=== PATIENT | female | born 1970 | race Caucasian/White ===

== ENCOUNTER 2019-08-26 21:01 | Emergency (ER) | payer OTHER ==
[~2019-08-26] VITALS: Ht 162.6 cm; Wt 117.9 kg
[2019-08-26 21:02] VITALS: BP_SYST 142
--- NOTE | 2019-08-26 21:02 | NUR ---
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 Denies C/P or SOB. Denies cardiac hx. SVT 160-190's per bedside monitor. Dr. Raygoza called to bedside.
--- NOTE | 2019-08-26 21:10 | NUR ---
Dr. Raygoza at bedside.
--- NOTE | 2019-08-26 21:20 | NUR ---
# 20 gauge angiocath placed to LAC. Use of asceptic technique. Opsite placed over site. Blood return noted. Blood for lab drawn from site. Flushed with 10 cc of normal saline. No evidence of infiltration noted. Patient tolerated well.
--- NOTE | 2019-08-26 21:24 | NUR ---
Dr. Raygoza, myself, EMT at bedside. Crashcart at bedside and pads in place. HR 192. Pt given Adenosine 6 mg rapid IVP and flushed with 10 mL NS.
--- NOTE | 2019-08-26 21:25 | NUR ---
Stable HR 92 with NSR. Pt denies c/o C/P or SOB. Pt verbalizes improvement in symptoms and no longer feels palpitations.
[2019-08-26] MEDS ORDERED: ADENOSINE 6MG/2ML VIAL IVP ONE (21:30)
--- NOTE | 2019-08-26 21:30 | NUR ---
HR 84, NSR, B/P 152/86, R 20, SPO2 99%. Pt denies c/o C/P or SOB.
--- NOTE | 2019-08-26 21:32 | NUR ---
X-ray at bedside.
[2019-08-26 21:55] LABS: BASOPHILS # (AUTO) 0.1 K/uL (0.0-0.2); BASOPHILS % (AUTO) 0.6 % (0.0-2.0); EOSINOPHILS # (AUTO) 0.3 K/uL (0.0-0.4); EOSINOPHILS % (AUTO) 2.1 % (0.0-4.0); HEMATOCRIT 45.4 % (36-48); HEMOGLOBIN 15.3 g/dL (12.0-16.0); LYMPHOCYTES # (AUTO) 3.1 K/uL (1.0-5.5); LYMPHOCYTES % (AUTO) 23.8 % (20.5-51.5); MEAN CORPUSCULAR HEMOGLOBIN 30 pg (27-31); MEAN CORPUSCULAR HGB CONC 34 % (32-36); MEAN CORPUSCULAR VOLUME 90 fL (79.0-98.0); MONOCYTES # (AUTO) 0.8 K/uL (0.0-1.0); MONOCYTES % (AUTO) 5.9 % (1.7-9.3); NEUTROPHILS # (AUTO) 8.8 K/uL (1.8-7.7); NEUTROPHILS % (AUTO) 67.6 % (40.0-70.0); PLATELET COUNT (AUTO) 254 K/uL (130-430); RED BLOOD CELL COUNT(AUTO) 5.05 MIL/uL (4.2-6.2); RED CELL DISTRIBUTION WIDTH 13.8 % (9.0-15.0); WHITE BLOOD COUNT (AUTO) 13.1 K/uL (4.8-10.8)
[2019-08-26 21:56] LABS: CALCIUM 8.7 mg/dL (8.4-11.0); CREATININE 0.85 mg/dL (0.55-1.30); POTASSIUM 3.6 mmol/L (3.5-5.1)
[2019-08-26 21:58] LABS: INR 0.9 (0.8-1.2); PROTHROMBIN TIME 9.3 SECS (9.5-12.5)
[2019-08-26 22:09] LABS: ALBUMIN 3.8 g/dL (3.4-4.8)
--- NOTE | 2019-08-26 22:30 | NUR ---
HR 72, NSR. Pt denies c/o pain or discomfort. at bedside and no needs verbalized.
--- NOTE | 2019-08-26 23:30 | NUR ---
Pt states that if her labs are okay she requests to leave AMA. Dr. Raygoza notified.
--- NOTE | 2019-08-27 00:32 | NUR ---
Repeat EKG performed and given to Dr. Raygoza. Lab at bedside to draw repeat Troponin.
--- NOTE | 2019-08-27 01:02 | NUR ---
Troponin 0.[address] as [address] Raygoza at bedside to inform pt. Pt agrees to stay and be admitted. Denies c/o C/P or SOB. HR 70.
[2019-08-27] MEDS ORDERED: ASPIRIN 81 MG TAB.CHEW PO ONE (01:30)
--- NOTE | 2019-08-27 02:08 | NUR ---
Pt requests to leave AMA. Dr. Raygoza at bedside to discuss risks of leaving.
[2019-08-27] MEDS ORDERED: ASPIRIN 81 MG TAB.CHEW ONE (02:24)
--- NOTE | 2019-08-27 02:35 | NUR ---
Attempted to discharge pt with AMA. Pt states that she needs a moment to think about it.
--- NOTE | 2019-08-27 02:40 | NUR ---
Pt decided to leave AMA.
[2019-08-27 02:50] VITALS: BP_SYST 142
--- NOTE | 2019-08-27 02:50 | NUR ---
Patient Signs AMA form, given written, and verbal discharge instructions and verbalizes understanding. ER MD discussed with patient the results and treatment provided. Patient in stable condition. ID arm band removed. IV catheter removed intact and dressing applied, no active bleeding. No Rx given. Patient educated on pain management and to follow up with PMD. Pain Scale 0/10. Opportunity for questions provided and answered. Medication side effect fact sheet provided.
[2019-08-27] MEDS ORDERED: ASPIRIN 81 MG TABLET(ECOTRIN) PO SCH (09:00)
[2019-08-27] MEDS ORDERED: DILTIAZEM HCL 30 MG TABLET PO SCH (09:00)
== END 2019-08-27 02:50 | disposition left against medical advice (07) ==
LOC: SED 21:01 → UNDOADMIN 08-27 01:32 → STU 08-27 01:32 → UNDODISIN 08-27 02:30 → STU 08-27 02:50
DX: I47.1 Supraventricular tachycardia (principal); I24.9 Acute ischemic heart disease, unspecified; R79.89 Other specified abnormal findings of blood chemistry; M54.2 Cervicalgia
CPT/HCPCS: 36415; 71045; 80053; 82550-TC; 83880; 84484; 84702-TC; 85025; 85379; 85610-TC; 85730-TC; 93005; 96374; 99291; G0378